=== PATIENT | female | born 1970 | race Caucasian/White ===

== ENCOUNTER 2020-03-23 13:35 | Emergency (ER) | payer SELFPAY ==
[~2020-03-23] VITALS: Ht 170.2 cm; Wt 244.0 kg
[2020-03-23 14:33] LABS: HEMATOCRIT 34.8 % (37.0-47.0); HEMOGLOBIN 8.3 g/dl (12.0-16.0); IMMATURE GRANULOCYTES 0.3 % (0.0-5.0); MEAN CELL VOLUME 81.5 fL CALC (80.0-100.0); MEAN CORPUSCULAR HGB 19.4 pG CALC (26.0-32.0); MEAN CORPUSCULAR HGB CONC 23.9 g/dL CAL (32.0-36.0); NEUT# 4.85 thou/uL (2.00-7.15); RED BLOOD COUNT 4.27 mill/uL (4.20-5.60); RED CELL DISTRI WIDTH 21.2 % (11.5-15.5)
[2020-03-23 14:46] LABS: ALBUMIN 3.8 g/dL (3.2-5.0); BILIRUBIN, TOTAL 1.3 mg/dL (0.0-1.4); CREATININE 1.6 mg/dL (0.5-1.0); POTASSIUM 4.9 mmol/l (3.5-5.1); TOTAL PROTEIN 6.7 g/dL (6.3-8.2)
[2020-03-23 16:27] VITALS: BP 119/72
== END 2020-03-23 16:26 | disposition short-term general hospital (02) | DRG 66 ==
LOC: ED 13:35
PROVIDERS: Emergency Medicine
DX: I63.9 Cerebral infarction, unspecified (principal); R29.708 NIHSS score 8; R47.81 Slurred speech; R41.0 Disorientation, unspecified; I10 Essential (primary) hypertension; E66.01 Morbid (severe) obesity due to excess calories; E78.5 Hyperlipidemia, unspecified; Z20.828 Contact with and (suspected) exposure to other viral communicable diseases

== ENCOUNTER 2020-04-27 12:26 | Emergency (ER) | payer MEDICAID ==
[~2020-04-27] VITALS: Ht 170.2 cm; Wt 226.0 kg
[2020-04-27 13:15] VITALS: BP 0/0
== END 2020-04-27 13:15 | disposition expired ==
LOC: ED 12:26
DX: I46.9 Cardiac arrest, cause unspecified (principal); I10 Essential (primary) hypertension; E66.01 Morbid (severe) obesity due to excess calories; Z86.73 Personal history of transient ischemic attack (TIA), and cerebral infarction without residual deficits